=== PATIENT | female | born 1955 | race Caucasian/White ===

== ENCOUNTER → 2017-12-20 | Outpatient (CLI) | payer BC ==
[2017-12-20 16:31] LABS: DHEA Sulfate 71.7 ug/dL (26.0-430.0)
[2017-12-20 16:35] LABS: Insulin Level 15.8 mIU/mL (3.0-25.0)
[2017-12-20 21:57] LABS: Hemoglobin A1C 5.8 % (4.0-6.0)
== END | disposition home or self-care (01) ==
LOC: LABWHC1 11:20
PROVIDERS: ATTEND Family Medicine
DX: M06.9 Rheumatoid arthritis, unspecified (principal); E03.9 Hypothyroidism, unspecified; E34.9 Endocrine disorder, unspecified; E11.9 Type 2 diabetes mellitus without complications
CPT/HCPCS: 36415; 82627; 82947; 83036; 83525; 84443; 84481; 86038; 86235

== ENCOUNTER → 2018-01-12 | Outpatient (CLI) | payer BC ==
[2018-01-12 13:14] LABS: Albumin 4.2 g/dL (3.5-5.0); Calcium 9.7 mg/dL (8.4-10.2); Potassium 4.5 mmol/L (3.5-5.1); Total Bilirubin 0.3 mg/dL (0.2-1.3); Total Protein 7.1 g/dL (6.3-8.2)
== END ==
LOC: LABWHC1 11:45
PROVIDERS: ATTEND Internal Medicine Endocrinology, Diabetes & Metabolism
DX: R73.03 Prediabetes (principal)
CPT/HCPCS: 36415; 80053; 83036

== ENCOUNTER → 2018-05-06 | Outpatient (CLI) | payer BC ==
[2018-05-06 12:35] LABS: Albumin 4.1 g/dL (3.5-5.0); Calcium 9.4 mg/dL (8.4-10.2); Potassium 4.2 mmol/L (3.5-5.1); Total Bilirubin 0.4 mg/dL (0.2-1.3); Total Protein 7.5 g/dL (6.3-8.2)
== END | disposition home or self-care (01) ==
LOC: LABWHC1 11:36
PROVIDERS: ATTEND Internal Medicine Clinical Cardiac Electrophysiology
DX: E78.5 Hyperlipidemia, unspecified (principal); R06.02 Shortness of breath; I49.3 Ventricular premature depolarization
CPT/HCPCS: 36415; 80053; 80061

== ENCOUNTER → 2018-06-21 | Outpatient (CLI) | payer BC ==
[2018-06-21 12:39] LABS: HGB 14.6 gm/dL (11.4-16.0); MCH 29.5 pg (25.0-35.0); MCHC 32.4 g/dL (31.0-37.0); MCV 91.1 fL (80.0-100.0); Mean Platelet Volume 6.3; Platelet Count 309 k/uL (150-450); RBC 4.94 m/uL (3.80-5.40); RDW 13.3 % (11.5-15.5); WBC 5.8 k/uL (3.8-10.6)
[2018-06-21 14:35] LABS: Erythrocyte Sedimentation Rate 16 mm/hr (0-20)
[2018-06-21 16:17] LABS: Iron Saturation 20.35 (12.00-45.00)
[2018-06-21 16:25] LABS: DHEA Sulfate 57.3 ug/dL (26.0-430.0)
[2018-06-21 16:30] LABS: Progesterone 1.2 ng/mL
[2018-06-21 16:31] LABS: Insulin Level 16.4 mIU/mL (3.0-25.0); Vitamin D 25 Hydroxy 44.3 ng/mL (30.0-100.0)
[2018-06-21 16:35] LABS: Thyroid Peroxidase Antibodies 53.7 U/mL (0.0-60.0)
[2018-06-21 17:55] LABS: Hemoglobin A1C 5.8 % (4.0-6.0)
[2018-06-22 11:40] LABS: Potassium 4.5; Sodium 139
[2018-06-22 11:41] LABS: Chloride 106; Glucose 92
[2018-06-22 11:42] LABS: Anion Gap 8.6; Carbon Dioxide 24.4
[2018-06-22 11:44] LABS: Calcium 9.7
[2018-06-22 11:49] LABS: GGT 17; Total Bilirubin 0.5
[2018-06-22 11:50] LABS: ALT 28; AST 27
[2018-06-22 11:51] LABS: Alkaline Phosphatase 55; C Reactive Protein <0.4
[2018-06-22 11:52] LABS: Cholesterol 199; Triglycerides 210
== END | disposition home or self-care (01) ==
LOC: LABWHC1 11:25
PROVIDERS: ATTEND Family Medicine
DX: E78.49 Other hyperlipidemia (principal); E03.9 Hypothyroidism, unspecified; D64.9 Anemia, unspecified; M06.9 Rheumatoid arthritis, unspecified; K76.9 Liver disease, unspecified; N28.9 Disorder of kidney and ureter, unspecified; I10 Essential (primary) hypertension; E11.9 Type 2 diabetes mellitus without complications; E34.9 Endocrine disorder, unspecified; E72.10 Disorders of sulfur-bearing amino-acid metabolism, unspecified; E55.9 Vitamin D deficiency, unspecified; E53.9 Vitamin B deficiency, unspecified
CPT/HCPCS: 36415; 80053; 80061; 82306; 82533; 82607; 82627; 82670; 82679; 82728; 82977; 83001; 83002; 83036; 83090; 83525; 83540; 83550; 84144; 84402; 84403; 84439; 84443; 84481; 85027; 85652; 86140; 86376; 86800

== ENCOUNTER 2019-06-17 19:30 | Emergency (ER) | payer BC ==
[2019-06-17 19:50] VITALS: RESP 18
--- NOTE | 2019-06-17 21:02 | XR ---
EXAMINATION TYPE: XR chest 2V DATE OF EXAM: 06/17/2019 COMPARISON: 08/23/2015 HISTORY: Cough TECHNIQUE: Frontal and lateral views of the chest are obtained. FINDINGS: Heart and mediastinum are normal. Lungs are clear. Diaphragm is normal. Bony thorax appear s normal. IMPRESSION: Normal chest. No change.
[2019-06-17] MEDS ORDERED: methylPREDNISolone SOD SUCCI 125 MG/2 ML VIAL IM ONE (21:19)
--- NOTE | 2019-06-17 21:20 | ED ---
URI HPI - General Chief Complaint: Upper Respiratory Infection Stated Complaint: Cough Time Seen by Provider: 06/17/19 20:11 Source: patient Mode of arrival: ambulatory Limitations: no limitations - History of Present Illness Initial Comments: 63-year-old female presented [facility] department for persistent cough. Patient states she has had a cough now for the past 2-3 weeks. Patient states that it has caused now burning in her throat. Patient denies any chest pain. She denies shortness of breath hemoptysis leg swelling. Patient states it initially started as congestion. Patient states that she is concerned this is developing into pneumonia. Patient denies fevers or rigors or chills. Remaining review of system negative. Upon arrival patient appears well no signs of acute distress. Vital signs stable - Related Data Home Medications Medication Instructions Recorded Confirmed Omeprazole [PriLOSEC] 10 mg PO DAILY 09/29/14 06/17/19 hydrOXYzine PAMOATE [Vistaril] 50 mg PO HS 09/29/14 06/17/19 Bioidentical Hormone Cream(Otc) 1 applic TOPICAL HS 06/17/19 06/17/19 Budesonide [Pulmicort] 0.5 mg INHALATION RT-BID PRN 06/17/19 06/17/19 Cimetidine [Tagamet] 200 mg PO DAILY 06/17/19 06/17/19 Cromolyn Sodium 20 mg INHALATION RT-QID PRN 06/17/19 06/17/19 Levothyroxine Sodium [Synthroid] 25 mcg PO DAILY 06/17/19 06/17/19 Thyroid,Pork [Asphalt Still Operator Thyroid] 60 mg PO DAILY 06/17/19 06/17/19 Previous Rx's Medication Instructions Recorded predniSONE 20 mg PO DAILY 5 Days #5 tab 06/17/19 Allergies Allergy/AdvReac Type Severity Reaction Status Date / Time ciprofloxacin [From Cipro] Allergy Unknown Verified 06/17/19 20:21 ciprofloxacin HCl Allergy Unknown Verified 06/17/19 20:21 [From Cipro] rabeprazole sodium Allergy Unknown Verified 06/17/19 20:21 [From Aciphex] Sulfa (Sulfonamide Allergy Unknown Verified 06/17/19 20:21 Antibiotics) Review of Systems ROS Statement: Those systems with pertinent positive or pertinent negative responses have been documented in the HPI. ROS Other: All systems not noted in ROS Statement are negative. Past Medical History Past Medical History: GERD/Reflux Additional Past Medical History / Comment(s): instititial cystitis, History of Any Multi-Drug Resistant Organisms: None Reported Past Surgical History: Breast Surgery, Hysterectomy Additional Past Surgical History / Comment(s): BREAST REDUCTION/ TUMMY TUCK, face lift, Past Psychological History: Panic Disorder Smoking Status: Former smoker Past Alcohol Use History: None Reported Past Drug Use History: None Reported General Exam - General Exam Comments Initial Comments: General: The patient is awake and alert, in no distress, and does not appear acutely ill. Eye: +3 mm pupils are equal, round and reactive to light, extra-ocular movements are intact. No nystagmus. There is normal conjunctiva bilaterally. No signs of icterus. No photophobia Ears, nose, mouth and throat: There are moist mucous membranes and no oral lesions. Oropharynx was not erythematous there is no tonsillar enlargement exudates or lesions. Uvula midline. Tympanic membranes are not erythematous or is no effusions bulging or retraction. No tenderness to palpation of the mastoid. No anterior cervical lymphadenopathy. Rhinorrhea, clear and bilateral nares. No tripoding, no drooling. Neck: The neck is supple, there is no tenderness or JVD. No nuchal rigidity Cardiovascular: There is a regular rate and rhythm. No murmur, rub or gallop is appreciated. Respiratory: Lungs are clear to auscultation, respirations are non-labored, breath sounds are equal. No wheezes, stridor, rales, or rhonchi. No retractions or abdominal breathing. Gastrointestinal: Soft, non-distended, non-tender abdomen without masses or organomegaly noted. There is no rebound or guarding present. Bowel sounds are unremarkable. Musculoskeletal: Normal ROM, no tenderness. Strength 5/5. Sensation intact. Radial pulses equal bilaterally 2+. Neurological: A&O x 3. CN II-XII intact grossly, There are no obvious motor or sensory deficits. Coordination appears grossly intact. Speech appears normal, no muffling. Skin: Skin is warm and dry and no rashes or lesions are noted. No extremity edema Psychiatric: Cooperative Limitations: no limitations Course Vital Signs 06/17/19 06/17/19 06/17/19 19:48 20:18 21:36 Temperature 98.7 F 98.4 F Pulse Rate 92 90 Respiratory 18 18 18 Rate Blood Pressure 138/71 136/82 O2 Sat by Pulse 97 97 Oximetry Medical Decision Making - Medical Decision Making Well-appearing 63-year-old female presenting for upper respiratory symptoms and cough. Persistent 3 weeks. Chest x-ray negative for focal consolidation. Lungs clear. Patient has at home breathing treatments. Patient provided IM steroids and given a prescription for prednisone outpatient. No history of fevers. At this time feels is most likely viral bronchitis. Return parameters were discussed case discussed with a provider and patient was discharged appearing well Disposition Clinical Impression: Bronchitis Disposition: HOME SELF-CARE Condition: Good Instructions (If sedation given, give patient instructions): Upper Respiratory Infection (ED) Additional Instructions: Please use medication as discussed. Please follow-up with family doctor in the next 2 days. Please return to emergency room if the symptoms increase or worsen or for any other concerns. Prescriptions: predniSONE 20 mg PO DAILY 5 Days #5 tab Is patient prescribed a controlled substance at d/c from ED?: No Referrals: Chase Nair MD [Primary Care Provider] - 1-2 days Time of Disposition: 21:19
[2019-06-17 21:39] VITALS: BP 136/82; PULSE 90; TEMP 98.4
== END 2019-06-17 21:39 | disposition home or self-care (01) ==
LOC: EC 19:30
DX: J40 Bronchitis, not specified as acute or chronic (principal); K21.9 Gastro-esophageal reflux disease without esophagitis; Z79.890 Hormone replacement therapy; Z79.899 Other long term (current) drug therapy; Z88.1 Allergy status to other antibiotic agents; Z88.2 Allergy status to sulfonamides; Z88.8 Allergy status to other drugs, medicaments and biological substances; Z87.891 Personal history of nicotine dependence
CPT/HCPCS: 71046; 99283; 96372; J2930

== ENCOUNTER → 2019-07-03 | Outpatient (CLI) | payer BC ==
--- NOTE | 2019-07-03 14:55 | XR ---
EXAMINATION TYPE: XR cervical spine limited DATE OF EXAM: 07/03/2019 COMPARISON: 04/18/2011 HISTORY: 63-year-old female with neck pain along the right side TECHNIQUE: 3 views FINDINGS: Progressive moderate degenerative disc disease with endplate spondylosis and disc space narrowing at C5-C6. Cervicothoracic junction is obscured by the patient's shoulders and not assessed. Scattered fa cet and uncovertebral joint arthropathy throughout. Facet arthropathy appears asymmetrically greater towards the right on the AP view. Normal odontoid view. No predental space widening or prevertebral s oft tissue swelling. Stable heterotopic ossifications along the posterior midline opposite the C4-C5 level. IMPRESSION: 1. Progressive moderate spondylotic change particularly at C5-C6. 2. Note that the cervicothoracic junction is obscured by the patient's shoulders and not assessed. Re maining cervical alignment is maintained. 3. Stable heterotopic ossifications along the posterior midline at the C4-C5 level.
== END | disposition home or self-care (01) ==
LOC: RADXRMAIN 11:19
PROVIDERS: ATTEND Family Medicine
DX: M47.812 Spondylosis without myelopathy or radiculopathy, cervical region (principal)
CPT/HCPCS: 72040

== ENCOUNTER → 2019-10-17 | Outpatient (CLI) | payer BC ==
[2019-10-17 16:43] LABS: African American GFR (CKD) 68.5 (60.0-200.0); Albumin 4.5 g/dL (3.80-4.90); Albumin/Globulin Ratio 1.73 (1.60-3.17); Calcium 9.6 mg/dL (8.7-10.3); Chol/HDL Ratio 4.17; Globulin 2.6 g/dL (1.6-3.3); LDL Cholesterol,Calculated 125.4 mg/dL (0.0-131.0); Non-African American GFR(CKD) 59.1 (60.0-200.0); Potassium 4.4 mmol/L (3.5-5.5); Total Bilirubin 0.6 mg/dL (0.2-1.2); Total Protein 7.1 g/dL (6.2-8.2); VLDL Calculation 20.6 mg/dL (5.00-40.00)
== END ==
LOC: LABWHC1 11:34
PROVIDERS: ATTEND Internal Medicine Endocrinology, Diabetes & Metabolism
DX: R73.03 Prediabetes (principal)
CPT/HCPCS: 36415; 80053; 80061; 83036; 84443

== ENCOUNTER → 2019-10-17 | Outpatient (CLI) | payer BC, MEDICARE ==
--- NOTE | 2019-10-17 13:46 | US ---
EXAMINATION TYPE: US abdomen complete DATE OF EXAM: 10/17/2019 COMPARISON: 07/17/2016 CLINICAL HISTORY: 64-year-old female R10.9 ABD PAIN. TECHNIQUE: Multiple sonographic images of the abdomen are obtained. FINDINGS: EXAM MEASUREMENTS: Liver Length: 14.1 cm Gallbladder Wall: 0.3 cm CBD: 0.3 cm Spleen: 10.5 cm Right Kidney: 10.9 x 3.8 x 4.4 cm Left Kidney: 10.8 x 4.9 x 4.5 cm Manager Lsw notes: Extensive overlying bowel gas. Pancreas: mostly obscured by bowel gas, portions visualized wnl Liver: Echogenic and attenuating appearance. This secondarily limits assessment for focal lesion. Als o, the left lobe is partially obscure by bowel gas Gallbladder: wnl Evidence for sonographic Clinton's sign: no CBD: wnl Spleen: wnl Kidneys: No hydronephrosis on either side. Upper IVC: wnl Abd Aorta: Upper abdominal aorta ectatic at 2.7 x 2.6 cm. IMPRESSION: 1. Underlying hepatic steatosis. Bowel gas obscures portions of the left liver lobe. 2. No cholelithiasis, acute cholecystitis, or biliary ductal dilatation.
== END | disposition home or self-care (01) ==
LOC: RADUSWWP 10:48
PROVIDERS: ATTEND Internal Medicine Gastroenterology
DX: K76.0 Fatty (change of) liver, not elsewhere classified (principal); R14.3 Flatulence
CPT/HCPCS: 76700

== ENCOUNTER 2020-01-02 17:39 | Emergency (ER) | payer BC ==
[2020-01-02] MEDS ORDERED: SODIUM CHLORIDE 0.9% 1,000 ML IV STA (18:09)
[2020-01-02] MEDS ORDERED: KETOROLAC 30 MG/ML 1 ML VIAL IVP STA (18:09)
--- NOTE | 2020-01-02 18:17 | ED ---
Abdominal Pain HPI - General Chief Complaint: Abdominal Pain Stated Complaint: Abd Pain Time Seen by Provider: 01/02/20 17:50 Source: patient Mode of arrival: ambulatory Limitations: no limitations - History of Present Illness Initial Comments: Patient is a 64-year-old female here for left-sided abdominal pain has been increasing over 2 days. Patient states she had a tele-health visit with her PCP today who recommended she go into the ER for evaluation. Patient states the pain started when she woke up 2 days ago, mostly on her left side, umbilical area. There is no alleviating factors. Patient states eating seems to make the pain a little bit worse. She admits to history of , hysterectomy, tummy tuck. She admits to normal colonoscopy a few years ago. She denies history of fever, chills, vomiting, chest pain, shortness of breath. She does admit to mild nausea has been intermittent. She rates her pain a 5/10 at this time. She denies taking any Tylenol or Motrin. She has no further complaints at this time. Upon arrival to the ER, her vital signs are stable. - Related Data Home Medications Medication Instructions Recorded Confirmed Omeprazole [PriLOSEC] 10 mg PO DAILY 09/29/14 06/17/19 hydrOXYzine PAMOATE [Vistaril] 50 mg PO HS 09/29/14 06/17/19 Bioidentical Hormone Cream(Otc) 1 applic TOPICAL HS 06/17/19 06/17/19 Budesonide [Pulmicort] 0.5 mg INHALATION RT-BID PRN 06/17/19 06/17/19 Cimetidine [Tagamet] 200 mg PO DAILY 06/17/19 06/17/19 Cromolyn Sodium 20 mg INHALATION RT-QID PRN 06/17/19 06/17/19 Levothyroxine Sodium [Synthroid] 25 mcg PO DAILY 06/17/19 06/17/19 Thyroid,Pork [Piano Instructor Thyroid] 60 mg PO DAILY 06/17/19 06/17/19 Previous Rx's Medication Instructions Recorded predniSONE [Deltasone] 20 mg PO DAILY 5 Days #5 tab 06/17/19 Cephalexin [Keflex] 500 mg PO BID 3 Days #6 cap 01/02/20 Allergies Allergy/AdvReac Type Severity Reaction Status Date / Time ciprofloxacin [From Cipro] Allergy Unknown Verified 01/02/20 17:44 ciprofloxacin HCl Allergy Unknown Verified 01/02/20 17:44 [From Cipro] rabeprazole sodium Allergy Unknown Verified 01/02/20 17:44 [From Aciphex] Sulfa (Sulfonamide Allergy Unknown Verified 01/02/20 17:44 Antibiotics) Review of Systems ROS Statement: Those systems with pertinent positive or pertinent negative responses have been documented in the HPI. ROS Other: All systems not noted in ROS Statement are negative. Past Medical History Past Medical History: GERD/Reflux Additional Past Medical History / Comment(s): instititial cystitis, History of Any Multi-Drug Resistant Organisms: None Reported Past Surgical History: Breast Surgery, Hysterectomy Additional Past Surgical History / Comment(s): BREAST REDUCTION/ TUMMY TUCK, face lift, Past Psychological History: Panic Disorder Smoking Status: Former smoker Past Alcohol Use History: None Reported Past Drug Use History: None Reported General Exam - General Exam Comments Initial Comments: GENERAL: Well-appearing, well-nourished and in no acute distress. HEAD: Atraumatic, normocephalic. EYES: Pupils equal round and reactive to light, extraocular movements intact, sclera anicteric, conjunctiva are normal. ENT: TMs normal, nares patent, oropharynx clear without exudates. Moist mucous membranes. NECK: Normal range of motion, supple without lymphadenopathy or JVD. LUNGS: Breath sounds clear to auscultation bilaterally and equal. No wheezes rales or rhonchi. HEART: Regular rate and rhythm without murmurs, rubs or gallops. ABDOMEN: Tenderness to palpation of the left side of the abdomen, lower >upper quadrant as well as suprapubic and umbilical region. Soft, normoactive bowel sounds. No guarding, no rebound. No masses appreciated. : Deferred EXTREMITIES: Normal range of motion, no pitting or edema. No clubbing or cyanosis. NEUROLOGICAL: Normal speech, normal gait. PSYCH: Normal mood, normal affect. SKIN: Warm, Dry, normal turgor, no rashes or lesions noted. Limitations: no limitations Course Vital Signs 01/02/20 01/02/20 17:42 20:34 Temperature 97.6 F 98.1 F Pulse Rate 86 81 Respiratory 18 16 Rate Blood Pressure 148/68 140/64 O2 Sat by Pulse 98 96 Oximetry Medical Decision Making - Medical Decision Making Patient is a 64-year-old female here for left sided abdominal pain is increasing over 2 days. Vital signs are stable. Lab work is unremarkable. Computed tomography scan shows no acute abnormalities, urine does show mild bacteria. I discussed with patient these findings. Patient did mention that 2 days ago prior to her symptoms she did help her move stuff into the attic and was doing a lot of overhead lifting. She states this might be muscle in nature. I recommended taking ibuprofen. Patient will be started on Keflex for a mild UTI. She is in agreement with this plan of care. She is stable for discharge. Return parameters were discussed with the patient she verbalized understanding. She will follow up with PCP. Case discussed with Dr. Johnson. - Lab Data Result diagrams: 01/02/20 18:20 01/02/20 18:20 Lab Results 01/02/20 01/02/20 01/02/20 Range/Units 18:20 18:20 18:20 WBC 8.4 (3.8-10.6) k/uL RBC 4.73 (3.80-5.40) m/uL Hgb 13.1 (11.4-16.0) gm/dL Hct 40.9 (34.0-46.0) % MCV 86.3 (80.0-100.0) fL MCH 27.6 (25.0-35.0) pg MCHC 32.0 (31.0-37.0) g/dL RDW 14.5 (11.5-15.5) % Plt Count 290 (150-450) k/uL Neutrophils % 67 % Lymphocytes % 20 % Monocytes % 6 % Eosinophils % 2 % Basophils % 1 % Neutrophils # 5.7 (1.3-7.7) k/uL Lymphocytes # 1.7 (1.0-4.8) k/uL Monocytes # 0.5 (0-1.0) k/uL Eosinophils # 0.2 (0-0.7) k/uL Basophils # 0.1 (0-0.2) k/uL PT 10.0 (9.0-12.0) sec INR 1.0 (<1.2) APTT 24.7 (22.0-30.0) sec Sodium (137-145) mmol/L Potassium (3.5-5.1) mmol/L Chloride (98-107) mmol/L Carbon Dioxide (22-30) mmol/L Anion Gap mmol/L BUN (7-17) mg/dL Creatinine (0.52-1.04) mg/dL Est GFR (CKD-EPI)AfAm (>60 ml/min/1.73 sqM) Est GFR (CKD-EPI)NonAf (>60 ml/min/1.73 sqM) Glucose (74-99) mg/dL Calcium (8.4-10.2) mg/dL Total Bilirubin (0.2-1.3) mg/dL AST (14-36) U/L ALT (4-34) U/L Alkaline Phosphatase (38-126) U/L Total Protein (6.3-8.2) g/dL Albumin (3.5-5.0) g/dL Amylase (30-110) U/L Lipase (23-300) U/L Urine Color Light Yellow Urine Appearance Turbid H (Clear) Urine pH 5.5 (5.0-8.0) Ur Specific [place] 1.008 (1.001-1.035) Urine Protein Negative (Negative) Urine Glucose (UA) Negative (Negative) Urine Ketones Negative (Negative) Urine Blood Trace H (Negative) Urine Nitrite Negative (Negative) Urine Bilirubin Negative (Negative) Urine Urobilinogen <2.0 (<2.0) mg/dL Ur Leukocyte Esterase Negative (Negative) Urine RBC 2 (0-5) /hpf Urine WBC 2 (0-5) /hpf Ur Squamous Epith Cells 3 (0-4) /hpf Amorphous Sediment Few H (None) /hpf Urine Bacteria Occasional H (None) /hpf Hyaline Casts 3 H (0-2) /lpf Urine Mucus Rare H (None) /hpf 05//20 Range/Units 18:20 WBC (3.8-10.6) k/uL RBC (3.80-5.40) m/uL Hgb (11.4-16.0) gm/dL Hct (34.0-46.0) % MCV (80.0-100.0) fL MCH (25.0-35.0) pg MCHC (31.0-37.0) g/dL RDW (11.5-15.5) % Plt Count (150-450) k/uL Neutrophils % % Lymphocytes % % Monocytes % % Eosinophils % % Basophils % % Neutrophils # (1.3-7.7) k/uL Lymphocytes # (1.0-4.8) k/uL Monocytes # (0-1.0) k/uL Eosinophils # (0-0.7) k/uL Basophils # (0-0.2) k/uL PT (9.0-12.0) sec INR (<1.2) APTT (22.0-30.0) sec Sodium 140 (137-145) mmol/L Potassium 3.9 (3.5-5.1) mmol/L Chloride 104 (98-107) mmol/L Carbon Dioxide 24 (22-30) mmol/L Anion Gap 12 mmol/L BUN 15 (7-17) mg/dL Creatinine 0.79 (0.52-1.04) mg/dL Est GFR (CKD-EPI)AfAm >90 (>60 ml/min/1.73 sqM) Est GFR (CKD-EPI)NonAf 80 (>60 ml/min/1.73 sqM) Glucose 87 (74-99) mg/dL Calcium 9.5 (8.4-10.2) mg/dL Total Bilirubin 0.3 (0.2-1.3) mg/dL AST 25 (14-36) U/L ALT 19 (4-34) U/L Alkaline Phosphatase 65 (38-126) U/L Total Protein 8.2 (6.3-8.2) g/dL Albumin 4.4 (3.5-5.0) g/dL Amylase 69 (30-110) U/L Lipase 89 (23-300) U/L Urine Color Urine Appearance (Clear) Urine pH (5.0-8.0) Ur Specific [place] (1.001-1.035) Urine Protein (Negative) Urine Glucose (UA) (Negative) Urine Ketones (Negative) Urine Blood (Negative) Urine Nitrite (Negative) Urine Bilirubin (Negative) Urine Urobilinogen (<2.0) mg/dL Ur Leukocyte Esterase (Negative) Urine RBC (0-5) /hpf Urine WBC (0-5) /hpf Ur Squamous Epith Cells (0-4) /hpf Amorphous Sediment (None) /hpf Urine Bacteria (None) /hpf Hyaline Casts (0-2) /lpf Urine Mucus (None) /hpf Disposition Clinical Impression: Abdominal pain, Abdominal muscle strain, UTI (urinary tract infection) Disposition: HOME SELF-CARE Condition: Stable Instructions (If sedation given, give patient instructions): Abdominal Pain (ED) Additional Instructions: Please return to the Emergency Department if symptoms worsen or any other concerns. May take ibuprofen for possible abdominal muscle strain. Follow-up with PCP. Take antibiotic as prescribed for a mild UTI. Prescriptions: Cephalexin [Keflex] 500 mg PO BID 3 Days #6 cap Is patient prescribed a controlled substance at d/c from ED?: No Referrals: Efrain Hayward DO [Primary Care Provider] - 1-2 days
[2020-01-02 19:08] LABS: Basophils # (A) 0.1 k/uL (0-0.2); Basophils % (A) 1 %; Eosinophils # (A) 0.2 k/uL (0-0.7); Eosinophils % (A) 2 %; HCT 40.9 % (34.0-46.0); HGB 13.1 gm/dL (11.4-16.0); Lymphocytes # (A) 1.7 k/uL (1.0-4.8); Lymphocytes % (A) 20 %; MCH 27.6 pg (25.0-35.0); MCV 86.3 fL (80.0-100.0); Monocytes # (A) 0.5 k/uL (0-1.0); Monocytes % (A) 6 %; Neutrophils # (A) 5.7 k/uL (1.3-7.7); Neutrophils % (A) 67 %; Platelet Count 290 k/uL (150-450); RBC 4.73 m/uL (3.80-5.40); RDW 14.5 % (11.5-15.5); WBC 8.4 k/uL (3.8-10.6)
[2020-01-02 19:14] LABS: ALT 19 U/L (4-34); AST 25 U/L (14-36); African American GFR (CKD) >90 (>60 ml/min/1.73 sqM); Albumin 4.4 g/dL (3.5-5.0); Alkaline Phosphatase 65 U/L (38-126); Amylase 69 U/L (30-110); Anion Gap 12 mmol/L; Blood Urea Nitrogen 15 mg/dL (7-17); Calcium 9.5 mg/dL (8.4-10.2); Carbon Dioxide 24 mmol/L (22-30); Chloride 104 mmol/L (98-107); Glucose 87 mg/dL (74-99); Non-African American GFR(CKD) 80 (>60 ml/min/1.73 sqM); Potassium 3.9 mmol/L (3.5-5.1); Sodium 140 mmol/L (137-145); Total Bilirubin 0.3 mg/dL (0.2-1.3); Total Protein 8.2 g/dL (6.3-8.2)
[2020-01-02 19:17] LABS: Amorphous Sediment,Urine Few /hpf; Appearance,Urine Turbid (Clear); Bacteria,Urine Occasional /hpf; Bilirubin,Urine Negative (Negative); Blood,Urine Trace (Negative); Color,Urine Light Yellow; Glucose,Urine (UA) Negative (Negative); Hyaline Casts,Urine 3 /lpf (0-2); Ketones,Urine Negative (Negative); Leukocyte Esterase,Urine Negative (Negative); Mucus,Urine Rare /hpf; Nitrite,Urine Negative (Negative); PH, Urine 5.5 (5.0-8.0); Protein,Urine Negative (Negative); RBC,Urine 2 /hpf (0-5); Specific Gravity,Urine 1.008 (1.001-1.035); Squamous Epithelial Cell,Urine 3 /hpf (0-4); Urobilinogen,Urine <2.0 mg/dL (<2.0); WBC,Urine 2 /hpf (0-5)
[2020-01-02 19:19] LABS: Partial Thromboplastin Time 24.7 sec (22.0-30.0)
--- NOTE | 2020-01-02 19:44 | CT ---
EXAMINATION TYPE: CT abdomen pelvis wo con DATE OF EXAM: 01/02/2020 HISTORY: Mid to left sided abdominal pain. CT DLP: 536.7 mGycm. Automated Exposure Control for Dose Reduction was Utilized. TECHNIQUE: CT scan of the abdomen and pelvis is performed without oral or IV contrast. COMPARISON: CT abdomen and pelvis March 19, 2009 FINDINGS: Within the limitations of a non-contrast study, the following observations are made. LUNG BASES: No significant abnormality is appreciated. LIVER/GB: Liver is diffusely low dense consistent with fatty infiltration. PANCREAS: No significant abnormality is seen. SPLEEN: No significant abnormality is seen. ADRENALS: No significant abnormality is seen. KIDNEYS: No renal stones or hydronephrosis is seen bilaterally. BOWEL: Suboptimal evaluation without enteric contrast. No suspicious small or large bowel dilatation. Low-lying cecum into right pelvis. GENITAL ORGANS: Uterus surgically absent or markedly atrophic. Some pelvic phleboliths axial image 69 . LYMPH NODES: No greater than 1cm abdominal or pelvic lymph nodes are appreciated. OSSEOUS STRUCTURES: Moderate axial joint space loss in both hips. Mild to moderate multilevel spurrin g in the thoracolumbar spine. OTHER: No significant additional abnormality is seen. IMPRESSION: No new or acute finding identified on this study.
[2020-01-02] MEDS ORDERED: cefTRIAXone IN SWFI 1,000 MG/10 ML SYRINGE IVP STA (20:17)
[2020-01-02 20:39] VITALS: BP 140/64; PULSE 81; RESP 16; TEMP 98.1
== END 2020-01-02 20:43 | disposition home or self-care (01) ==
LOC: EC 17:39
DX: N39.0 Urinary tract infection, site not specified (principal); S39.011A Strain of muscle, fascia and tendon of abdomen, initial encounter; K21.9 Gastro-esophageal reflux disease without esophagitis; Z79.899 Other long term (current) drug therapy; Z79.51 Long term (current) use of inhaled steroids; Z79.890 Hormone replacement therapy; Z88.1 Allergy status to other antibiotic agents; Z88.2 Allergy status to sulfonamides; Z88.8 Allergy status to other drugs, medicaments and biological substances; X58.XXXA Exposure to other specified factors, initial encounter
CPT/HCPCS: 36415; 80053; 82150; 83690; 85025; 85610; 85730; 81001; 74176; 99284; 96374; 96361; J0696

== ENCOUNTER 2020-08-23 10:10 | Emergency (ER) | payer BC ==
[2020-08-23 10:24] VITALS: BP 187/93; RESP 18; TEMP 98.7
[2020-08-23] MEDS ORDERED: diazePAM 5 MG TAB PO STA (10:27)
--- NOTE | 2020-08-23 10:36 | ED ---
General Adult HPI - General Chief complaint: Recheck/Abnormal Lab/Rx Stated complaint: HR IS HIGH,SHAKY Time Seen by Provider: 08/23/20 10:26 Source: patient, RN notes reviewed, old records reviewed Mode of arrival: ambulatory Limitations: no limitations - History of Present Illness Initial comments: Patient is a pleasant 65-year-old female who presents emergency room today with acute anxiety stress and shakiness. She reports that her is currently in the intensive care unit and suffered cardiac arrest. Patient reports that her is in critical condition states that he may be transferred to another hospital. Patient states that she has had take Valium when she's been acute stress reactions like this before. She reports that the lowest dose of 2mg seems to help with her symptoms. - Related Data Home Medications Medication Instructions Recorded Confirmed Omeprazole [PriLOSEC] 10 mg PO DAILY 09/29/14 06/17/19 hydrOXYzine pamoate [Vistaril] 50 mg PO HS 09/29/14 06/17/19 Bioidentical Hormone Cream(Otc) 1 applic TOPICAL HS 06/17/19 06/17/19 Budesonide [Pulmicort] 0.5 mg INHALATION RT-BID PRN 06/17/19 06/17/19 Cimetidine [Tagamet] 200 mg PO DAILY 06/17/19 06/17/19 Cromolyn Sodium 20 mg INHALATION RT-QID PRN 06/17/19 06/17/19 Levothyroxine Sodium [Synthroid] 25 mcg PO DAILY 06/17/19 06/17/19 Thyroid,Pork [Pediatric Physician Assistant Thyroid] 60 mg PO DAILY 06/17/19 06/17/19 Previous Rx's Medication Instructions Recorded predniSONE [Deltasone] 20 mg PO DAILY 5 Days #5 tab 06/17/19 Cephalexin [Keflex] 500 mg PO BID 3 Days #6 cap 01/02/20 diazePAM [Valium] 2 mg PO QID 3 Days #12 tab 08/23/20 Allergies Allergy/AdvReac Type Severity Reaction Status Date / Time ciprofloxacin [From Cipro] Allergy Unknown Verified 08/23/20 10:24 ciprofloxacin HCl Allergy Unknown Verified 08/23/20 10:24 [From Cipro] rabeprazole sodium Allergy Unknown Verified 08/23/20 10:24 [From Aciphex] Sulfa (Sulfonamide Allergy Unknown Verified 08/23/20 10:24 Antibiotics) Review of Systems ROS Statement: Those systems with pertinent positive or pertinent negative responses have been documented in the HPI. ROS Other: All systems not noted in ROS Statement are negative. Past Medical History Past Medical History: Asthma, GERD/Reflux Additional Past Medical History / Comment(s): instititial cystitis, History of Any Multi-Drug Resistant Organisms: None Reported Past Surgical History: Breast Surgery, Hysterectomy Additional Past Surgical History / Comment(s): BREAST REDUCTION/ TUMMY TUCK, face lift, Past Psychological History: Panic Disorder Smoking Status: Never smoker Past Alcohol Use History: None Reported Past Drug Use History: None Reported General Exam - General Exam Comments Initial Comments: 65-year-old female. Anxious. Resting in bed. She is with her son at bedside. Limitations: no limitations General appearance: alert, in no apparent distress Head exam: Present: atraumatic Eye exam: Present: normal appearance, PERRL, EOMI. Absent: scleral icterus, conjunctival injection, periorbital swelling ENT exam: Present: normal exam, mucous membranes moist Neck exam: Present: normal inspection. Absent: tenderness, meningismus, lymphadenopathy Respiratory exam: Present: normal lung sounds bilaterally. Absent: respiratory distress, wheezes, rales, rhonchi, stridor Cardiovascular Exam: Present: regular rate, normal rhythm, normal heart sounds. Absent: systolic murmur, diastolic murmur, rubs, gallop, clicks GI/Abdominal exam: Present: soft, normal bowel sounds. Absent: distended, tenderness, guarding, rebound, rigid Extremities exam: Present: normal inspection, full ROM, normal capillary refill. Absent: tenderness, pedal edema, joint swelling, calf tenderness Back exam: Present: normal inspection Neurological exam: Present: alert, oriented X3, CN II-XII intact Psychiatric exam: Present: normal affect, normal mood Skin exam: Present: warm, dry, intact, normal color. Absent: rash Course Vital Signs 08/23/20 10:14 Temperature 98.7 F Pulse Rate 124 H Respiratory 18 Rate Blood Pressure 187/93 O2 Sat by Pulse 98 Oximetry Medical Decision Making - Medical Decision Making 65-year-old female presents emergency room today with acute stress reaction after her 's note critical condition and intensive care unit and suffering cardiac arrest. Patient at this time states that she would like Valium to help with her symptoms of shakiness and stress and anxiety. She denies any physical complaints at this time. Patient states that Valium seems to help with her symptoms past. Patient will be given 5 mg Valium tablet now and cut in half to use for later and I did send a prescription to her pharmacy. I discussed to follow-up with her primary care doctor and return if there is any concerning physical signs or symptoms. Patient is agreeable to treatment plan. Disposition Clinical Impression: Stress and adjustment reaction Disposition: HOME SELF-CARE Condition: Good Instructions (If sedation given, give patient instructions): Anxiolysis in Adults (ED) Additional Instructions: Please use medication as discussed. Please follow up with family doctor if symptoms have not improved over the next two days. Please return to the emergency room if your symptoms increase or worsen or for any other concerns. Prescriptions: diazePAM [Valium] 2 mg PO QID 3 Days #12 tab Is patient prescribed a controlled substance at d/c from ED?: Yes If prescribed controlled substance>3 days was MAPS reviewed?: Prescribed <3 Days If opioid is for acute pain is fill amount 7 days or less?: Yes If Rx opioid, was Start Talking consent form obtained?: Yes Referrals: Chase Nair MD [Primary Care Provider] - 1-2 days Time of Disposition: 10:34
[2020-08-23 10:39] VITALS: PULSE 102
== END 2020-08-23 10:50 | disposition home or self-care (01) ==
LOC: EC 10:10
DX: F43.29 Adjustment disorder with other symptoms (principal); J45.909 Unspecified asthma, uncomplicated; K21.9 Gastro-esophageal reflux disease without esophagitis; Z88.1 Allergy status to other antibiotic agents; Z88.2 Allergy status to sulfonamides; Z88.8 Allergy status to other drugs, medicaments and biological substances; Z90.710 Acquired absence of both cervix and uterus
CPT/HCPCS: 99285

== ENCOUNTER → 2021-12-09 | Outpatient (CLI) | payer MEDICARE ==
[2021-12-09 13:12] VITALS: BP 134/80; PULSE 80; RESP 12; TEMP 97.9
--- NOTE | 2021-12-09 14:19 | P.HPOB ---
History of Present Illness H&P Date: 12/09/21 Chief Complaint: The patient is here for her routine gynecologic exam. This is a 66-year-old with an LMP of 1988. The patient is here to establish with this office. She is status post BECKY/BSO for benign reasons. She later underwent a rectocele and enterocele repair in 2019. She states she has been having issues having bowel movements even before her rectocele and enterocele surgery. Her issues with bowel movements seem to have gotten worse after her enterocele and rectocele surgery. She sometimes has to push on the perineum to be able to move her bowels. Her last pelvic exam was about 4 years ago. She is otherwise without complaints. She has been using HRT compounded cream which she uses transdermally. This includes estradiol, estradiol ,progesterone and testosterone. She also uses a compounded estriol vaginal cream which she states helps with her interstitial cystitis. Review of Systems She states her weight has been stable over the past year. She denies respiratory problems. Cardiac: Occasional fluttering of the heart and she sees Dr. Lane for this. GI: She occasionally has to push on the perineum to have her bowel movements. See the HPI. Past Medical History Past Medical History: Asthma, GERD/Reflux, Thyroid Disorder Additional Past Medical History / Comment(s): instititial cystitis, hypothyroidism, Heard's esophagus. 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 History of Any Multi-Drug Resistant Organisms: None Reported Past Surgical History: Breast Surgery, Section, Hysterectomy, Tubal Ligation Additional Past Surgical History / Comment(s): BREAST REDUCTION/ TUMMY TUCK, face lift, breast biopsy, section 1, abdominoplasty, facelift surgery, BECKY/BSO in 1988. Rectocele and enterocele repair 2019. Past Psychological History: Panic Disorder Additional Psychological History / Comment(s): She denies depression symptoms. Smoking Status: Former smoker Past Alcohol Use History: None Reported Additional Past Alcohol Use History / Comment(s): Quit smoking in 1989. Past Drug Use History: None Reported Additional History: She has been a since 2019 and is not seeing anybody at this time. 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 - Past Family History Father Family Medical History: Cancer Additional Family Medical History / Comment(s): Pancreatic cancer. Brother(s) Family Medical History: Diabetes Mellitus Mother Family Medical History: Hypertension Medications and Allergies Home Medications Medication Instructions Recorded Confirmed Type Omeprazole [PriLOSEC] 10 mg PO DAILY 09/29/14 06/17/19 History hydrOXYzine pamoate [Vistaril] 50 mg PO HS 09/29/14 06/17/19 History Bioidentical Hormone Cream(Otc) 1 applic TOPICAL HS 06/17/19 06/17/19 History Budesonide [Pulmicort] 0.5 mg INHALATION RT-BID PRN 06/17/19 06/17/19 History Cromolyn Sodium 20 mg INHALATION RT-QID PRN 06/17/19 06/17/19 History Levothyroxine Sodium [Synthroid] 25 mcg PO DAILY 06/17/19 06/17/19 History Thyroid,Pork [Coil Shaper Thyroid] 60 mg PO DAILY 06/17/19 06/17/19 History Cholecalciferol (Vitamin D3) 250 mcg PO DAILY 12/09/21 12/09/21 History [Vitamin D3 (125 MCG = 5,000 IU)] Chromium Picolinate 200 mcg PO DAILY 12/09/21 12/09/21 History Famotidine [Pepcid] 40 mg PO BID 12/09/21 12/09/21 History Garlic 50 mg PO BID 12/09/21 12/09/21 History Lutein 20 mg PO DAILY 12/09/21 12/09/21 History Magnesium 240 mg PO BID 12/09/21 12/09/21 History Ubidecarenone [Co Q-10] 200 mg PO DAILY 12/09/21 12/09/21 History Vitamin A [Vitamin A (8,000 Units 3,000 mcg PO DAILY 12/09/21 12/09/21 History = 2,400 MCG)] metFORMIN HCL ER [Glucophage XR] 500 mg PO DAILY 12/09/21 12/09/21 History Allergies Allergy/AdvReac Type Severity Reaction Status Date / Time ciprofloxacin [From Cipro] Allergy Unknown Verified 12/09/21 13:06 ciprofloxacin HCl Allergy Unknown Verified 12/09/21 13:06 [From Cipro] rabeprazole sodium Allergy Unknown Verified 12/09/21 13:06 [From Aciphex] Sulfa (Sulfonamide Allergy Unknown Verified 12/09/21 13:06 Antibiotics) Exam Vital Signs Temp Pulse Resp BP Pulse Ox 12/09/21 13:06 97.9 F 80 12 134/80 99 Intake and Output 12/08/21 12/09/21 12/09/21 22:59 06:59 14:59 Other: Weight 71.668 kg Height 5 feet 6 inches, weight 158 pounds, BMI 25.5. This is a well-developed well-nourished white female who is alert and oriented times 3 in no acute distress. HEENT: Within normal limits. NECK: Supple without mass or thyromegaly. CHEST AND LUNGS: Clear to auscultation. HEART: Regular rate and rhythm. BREASTS: Are without mass or discharge. Breasts are consistent with bilateral breast reduction surgery. AXILLARY EXAM: Negative for adenopathy. BACK: Negative for CVA tenderness. ABDOMEN: Soft, nontender, without palpable masses. PELVIC EXAM: External genitalia appears normal with mild atrophy. Vagina appears normal mild atrophy. There is no evidence of prolapse. Bimanual examination is negative for mass or tenderness. RECTAL EXAM: Rectovaginal exam is negative for mass or tenderness and is negative for occult blood. There is good sphincter tone. EXTREMITIES: Nontender. IMPRESSION: 1. 66-year-old menopausal female status post BECKY/BSO as well as rectocele and enterocele surgery for benign reasons. 2. We'll gynecologic exam. 3. Some difficulty with bowel movements which has gotten worse following her rectocele and enterocele surgeries. There are no significant physical findings at this time. 4. On compounded HRT prescribed through another physician. PLAN: 1. Pap smears have been discontinued. 2. Self breast awareness was discussed with the patient. We have also discussed symptoms associated with inflammatory breast cancer. 3. Screening mammogram was recently done per the patient. She states she will get me a copy of this and this was done at [facility]. 4. Post prevention she states she had a fairly recent bone density test done at [facility]. She states she will have a copy of the report sent to me. 5. She has not received a Covid vaccination. She understands the CDC recommends vaccination. She will consider this. 6. We have had a long discussion regarding some difficulty with bowel movements . At this time I do not find any structural problems that could be directly causing this. She understands that the rectocele and enterocele repair may change some structures near the rectum and affect her bowel movements. This time pelvic physical therapy may be helpful. She states she has done this in the past with some improvement. She will look to start this up again to see if she can get more improvement. She has a physical therapist for this. 7. She was advised to return in one year for her annual well woman exam.
== END ==
LOC: WWCWWP 12:57
PROVIDERS: ATTEND Obstetrics & Gynecology
DX: Z01.419 Encounter for gynecological examination (general) (routine) without abnormal findings (principal); N81.6 Rectocele; K46.9 Unspecified abdominal hernia without obstruction or gangrene; J45.909 Unspecified asthma, uncomplicated; E03.9 Hypothyroidism, unspecified; F41.0 Panic disorder [episodic paroxysmal anxiety]; Z87.891 Personal history of nicotine dependence; Z90.710 Acquired absence of both cervix and uterus; K21.9 Gastro-esophageal reflux disease without esophagitis; Z79.890 Hormone replacement therapy; Z88.1 Allergy status to other antibiotic agents; Z88.2 Allergy status to sulfonamides; Z98.890 Other specified postprocedural states

== ENCOUNTER → 2023-01-12 | Outpatient (CLI) | payer MEDICARE ==
[2023-01-12 11:43] VITALS: BP 101/67; PULSE 80; RESP 18; TEMP 97.7
--- NOTE | 2023-01-12 12:22 | P.HPOB ---
History of Present Illness H&P Date: 01/12/23 Chief Complaint: The patient is here for her routine gynecologic exam. This is a 67-year-old with an LMP of 1988. She is status post BECKY/BSO for benign reasons. She later underwent a rectocele and enterocele surgery in 2019. She has been having issues with bowel movements and these issues have gotten greater after the rectocele repair. She has been undergoing physical therapy with use of a dilator which has been helpful. Review of Systems The patient has lost 3 pounds over the last year. She denies respiratory, cardiac, or G.I. problems. Past Medical History Past Medical History: Asthma, GERD/Reflux, Thyroid Disorder Additional Past Medical History / Comment(s): instititial cystitis, hypothyroidism, Heard's esophagus. 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 History of Any Multi-Drug Resistant Organisms: None Reported Past Surgical History: Breast Surgery, Section, Hysterectomy, Tubal Ligation Additional Past Surgical History / Comment(s): BREAST REDUCTION/ TUMMY TUCK, face lift, breast biopsy, section 1, abdominoplasty, facelift surgery, BECKY/BSO in 1988. Rectocele and enterocele repair 2019. Past Psychological History: Panic Disorder Additional Psychological History / Comment(s): She denies depression symptoms. Smoking Status: Former smoker Past Alcohol Use History: None Reported Additional Past Alcohol Use History / Comment(s): Quit smoking in 1989. Past Drug Use History: None Reported Additional History: She has been a since 2019. She is currently not seeing anybody at this time and has not been sexually active during the past year. 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 - Past Family History Father Family Medical History: Cancer Additional Family Medical History / Comment(s): Pancreatic cancer. Brother(s) Family Medical History: Diabetes Mellitus Mother Family Medical History: Hypertension Medications and Allergies Home Medications Medication Instructions Recorded Confirmed Type Omeprazole [PriLOSEC] 10 mg PO DAILY 09/29/14 01/12/23 History hydrOXYzine pamoate [Vistaril] 25 mg PO HS 09/29/14 01/12/23 History Bioidentical Hormone Cream(Otc) 2 applic TOPICAL HS 06/17/19 01/12/23 History Budesonide [Pulmicort] 0.5 mg INHALATION RT-BID PRN 06/17/19 01/12/23 History Cromolyn Sodium 20 mg INHALATION RT-QID PRN 06/17/19 01/12/23 History Levothyroxine Sodium [Synthroid] 0.025 mcg PO DAILY 06/17/19 01/12/23 History Thyroid,Pork [Male Model Thyroid] 40 mg PO DAILY 06/17/19 01/12/23 History Cholecalciferol (Vitamin D3) 250 mcg PO DAILY 12/09/21 01/12/23 History [Vitamin D3 (125 MCG = 5,000 IU)] Chromium Picolinate 200 mcg PO DAILY 12/09/21 01/12/23 History Famotidine [Pepcid] 40 mg PO BID 12/09/21 01/12/23 History Garlic 50 mg PO BID 12/09/21 01/12/23 History Lutein 20 mg PO DAILY 12/09/21 01/12/23 History Magnesium 240 mg PO BID 12/09/21 01/12/23 History Ubidecarenone [Co Q-10] 200 mg PO DAILY 12/09/21 01/12/23 History Vitamin A [Vitamin A (8,000 Units 3,000 mcg PO DAILY 12/09/21 01/12/23 History = 2,400 MCG)] metFORMIN HCL ER [Glucophage XR] 500 mg PO DAILY 12/09/21 01/12/23 History Allergies Allergy/AdvReac Type Severity Reaction Status Date / Time ciprofloxacin [From Cipro] Allergy Unknown Verified 01/12/23 11:35 ciprofloxacin HCl Allergy Unknown Verified 01/12/23 11:35 [From Cipro] rabeprazole sodium Allergy Unknown Verified 01/12/23 11:35 [From Aciphex] Sulfa (Sulfonamide Allergy Unknown Verified 01/12/23 11:35 Antibiotics) Exam Vital Signs Temp Pulse Resp BP Pulse Ox 01/12/23 11:38 97.7 F 80 18 101/67 97 Intake and Output 01/11/23 01/12/23 01/12/23 22:59 06:59 14:59 Other: Weight 70.307 kg Height 5 feet 6 inches, weight 155 pounds, BMI 25.0. This is a well-developed well-nourished white female who is alert and oriented times 3 in no acute distress. HEENT: Within normal limits. NECK: Supple without mass or thyromegaly. CHEST AND LUNGS: Clear to auscultation. HEART: Regular rate and rhythm. BREASTS: Are without mass or discharge. Breasts are consistent with bilateral breast reduction surgeries. AXILLARY EXAM: Negative for adenopathy. BACK: Negative for CVA tenderness. ABDOMEN: Soft, nontender, without palpable masses. PELVIC EXAM: External genitalia appears normal with mild atrophy. Vagina appears normal is mild atrophy. There is no evidence of prolapse. Bimanual examination is negative for mass or tenderness. RECTAL EXAM: Rectovaginal exam is negative for mass or tenderness and is negative for occult blood. EXTREMITIES: Nontender. IMPRESSION: 1. 67-year-old menopausal female status post BECKY/BSO with later enterocele and rectocele repairs for benign reasons, with normal gynecologic exam. 2. Doing well with physical therapy for bowel movement issues. No significant physical findings on exam today. PLAN: 1. Pap smears have been discontinued. 2. Self breast awareness was discussed with the patient. We have also discussed symptoms associated with inflammatory breast cancer. 3. Screening mammogram was done on 10/16/2022 at [facility] per the patient. According to the patient this was normal. She will try to get me a copy of the mammogram. She will repeat this after 1 year. 4. Osteoporosis prevention was discussed. I have stressed the importance of adequate calcium, vitamin D and regular exercise. Recommended amounts of calcium and vitamin D were also discussed. 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 She will try to get me a copy of her most recent bone density test. 5. She was advised to return in one year for her annual well woman exam.
== END ==
LOC: WWCWWP 11:23
PROVIDERS: ATTEND Obstetrics & Gynecology
DX: Z01.419 Encounter for gynecological examination (general) (routine) without abnormal findings (principal); Z78.0 Asymptomatic menopausal state; B33.8 Other specified viral diseases; Z98.890 Other specified postprocedural states; Z88.1 Allergy status to other antibiotic agents; Z88.2 Allergy status to sulfonamides; Z88.8 Allergy status to other drugs, medicaments and biological substances; J45.909 Unspecified asthma, uncomplicated; K21.9 Gastro-esophageal reflux disease without esophagitis; E03.9 Hypothyroidism, unspecified; K22.70 Barrett's esophagus without dysplasia; Z79.890 Hormone replacement therapy; Z87.891 Personal history of nicotine dependence

== ENCOUNTER → 2023-07-07 | Outpatient (CLI) | payer MEDICARE ==
--- NOTE | 2023-07-08 12:57 | MR ---
EXAMINATION TYPE: MR hip LT wo con DATE OF EXAM: 07/07/2023 COMPARISON: CT abdomen and pelvis January 02, 2020 HISTORY: Left hip pain x 6 weeks, strain. Standard multiplanar, multisequence MRI departmental protocol Multiplanar, multisequence images of the pelvis focusing on left hip were acquired without contrast. FINDINGS: [id number] axial joint space loss with mild spurring of both hips is redemonstrated. Small symmetric hip joint effusions are present and presumed physiologic. Small bowel heterogeneity o f bone marrow. No suspicious focal increased T2 signal or edema. No serpiginous diminished T1 signal to suggest avascular necrosis bilaterally. Femoral head shapes are maintained bilaterally. Muscle bul k is symmetric and within normal limits bilaterally. No groin hernia or adenopathy is seen. No suspicious small or large bowel dilatation. Urinary bladder appears within normal limits. No free fluid in the pelvis. IMPRESSION: [id number] degenerative changes in both hips as detailed above. No suspicious muscular edema or tearing noted.
== END | disposition home or self-care (01) ==
LOC: RADMRIMAIN 08:42
PROVIDERS: ATTEND Family Medicine
DX: M16.0 Bilateral primary osteoarthritis of hip (principal); M25.451 Effusion, right hip; M25.452 Effusion, left hip

== ENCOUNTER → 2024-02-01 | Outpatient (CLI) | payer MEDICARE ==
[2024-02-01 16:21] VITALS: BP 126/71; PULSE 66; RESP 16; TEMP 97.9
--- NOTE | 2024-02-01 16:54 | P.HPOB ---
History of Present Illness H&P Date: 02/01/24 Chief Complaint: The patient is here for her routine gynecologic exam. This is a 68-year-old with an LMP of 1988. She is status post BECKY/BSO for benign reasons. She later underwent a rectocele and enterocele repair in 2019. She previously was having bowel movement issues after the rectocele repair, but underwent physical therapy which helped and she also uses MiraLAX as needed. She no longer undergoes physical therapy, but uses some of the techniques utilized by physical therapist still. She has been on HRT cream for 10 years and this is prescribed by Dr. Monica Hayward, her "secondary" primary physician. She uses this for menopausal symptoms including sexual menopausal symptoms for which this has helped significantly. Review of Systems Weight has been stable. She denies respiratory or cardiac problems. GI: Her bowel movement issues are significantly improved as in the HPI. Past Medical History Past Medical History: Asthma, GERD/Reflux, Thyroid Disorder Additional Past Medical History / Comment(s): instititial cystitis, hypothyroidism, Heard's esophagus. 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 History of Any Multi-Drug Resistant Organisms: None Reported Past Surgical History: Breast Surgery, Section, Hysterectomy, Tubal Ligation Additional Past Surgical History / Comment(s): BREAST REDUCTION/ TUMMY TUCK, face lift, breast biopsy, section 1, abdominoplasty, facelift surgery, BECKY/BSO in 1988. Rectocele and enterocele repair 2018. Colonoscopy 2022(Next after 5yr) Past Psychological History: Panic Disorder Additional Psychological History / Comment(s): She denies depression symptoms. Smoking Status: Former smoker Past Alcohol Use History: None Reported Additional Past Alcohol Use History / Comment(s): Quit smoking in 1989. Past Drug Use History: None Reported Additional History: She has been a since 2019. She is currently not sexually active. 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 - Past Family History Father Family Medical History: Cancer Additional Family Medical History / Comment(s): Pancreatic cancer. Brother(s) Family Medical History: Diabetes Mellitus Mother Family Medical History: Hypertension Medications and Allergies Home Medications Medication Instructions Recorded Confirmed Type Omeprazole [PriLOSEC] 10 mg PO DAILY 09/29/14 01/12/23 History hydrOXYzine pamoate [Vistaril] 25 mg PO HS 09/29/14 01/12/23 History Bioidentical Hormone Cream(Otc) 2 applic TOPICAL HS 06/17/19 01/12/23 History Budesonide [Pulmicort] 0.5 mg INHALATION RT-BID PRN 06/17/19 01/12/23 History Cromolyn Sodium 20 mg INHALATION RT-QID PRN 06/17/19 01/12/23 History Levothyroxine Sodium [Synthroid] 0.025 mcg PO DAILY 06/17/19 01/12/23 History Thyroid,Pork [Spouting Installer Thyroid] 40 mg PO DAILY 06/17/19 01/12/23 History Cholecalciferol (Vitamin D3) 250 mcg PO DAILY 12/09/21 01/12/23 History [Vitamin D3 (125 MCG = 5,000 IU)] Chromium Picolinate 200 mcg PO DAILY 12/09/21 01/12/23 History Famotidine [Pepcid] 40 mg PO BID 12/09/21 01/12/23 History Garlic 50 mg PO BID 12/09/21 01/12/23 History Lutein 20 mg PO DAILY 12/09/21 01/12/23 History Magnesium 240 mg PO BID 12/09/21 01/12/23 History Ubidecarenone [Co Q-10] 200 mg PO DAILY 12/09/21 01/12/23 History Vitamin A [Vitamin A (8,000 Units 3,000 mcg PO DAILY 12/09/21 01/12/23 History = 2,400 MCG)] metFORMIN HCL ER [Glucophage XR] 500 mg PO DAILY 12/09/21 01/12/23 History Allergies Allergy/AdvReac Type Severity Reaction Status Date / Time ciprofloxacin [From Cipro] Allergy Unknown Verified 02/01/24 16:18 ciprofloxacin HCl Allergy Unknown Verified 02/01/24 16:18 [From Cipro] rabeprazole sodium Allergy Unknown Verified 02/01/24 16:18 [From Aciphex] Sulfa (Sulfonamide Allergy Unknown Verified 02/01/24 16:18 Antibiotics) Exam Vital Signs Temp Pulse Resp BP Pulse Ox 02/01/24 16:18 97.9 F 66 16 126/71 98 Intake and Output 02/01/24 02/01/24 02/01/24 06:59 14:59 22:59 Other: Weight 71.214 kg Height 5 feet 6 inches, weight 157 pounds, BMI 25.3. This is a well-developed well-nourished white female who is alert and oriented times 3 in no acute distress. HEENT: Within normal limits. NECK: Supple without mass or thyromegaly. CHEST AND LUNGS: Clear to auscultation. HEART: Regular rate and rhythm. BREASTS: Are without mass or discharge. Breasts are consistent with bilateral breast reduction surgery. AXILLARY EXAM: Negative for adenopathy. BACK: Negative for CVA tenderness. ABDOMEN: Soft, nontender, without palpable masses. PELVIC EXAM: External genitalia appears normal with mild atrophy. Vagina appears normal with mild atrophy. There is no evidence of prolapse. Bimanual examination is negative for mass or tenderness. RECTAL EXAM: Rectovaginal exam is negative for mass or tenderness and is ne gative for occult blood. EXTREMITIES: Nontender. IMPRESSION: 1. 68-year-old menopausal female status post BECKY/BSO for benign reasons with normal gynecologic exam. 2. Improved bowel movement issues which started after her rectocele repair. 3. The patient is on HRT creams which the patient states includes estrogen, progesterone, and testosterone. This is prescribed and monitored by Dr. Monica Hayward, according to the patient. PLAN: 1. Pap smears have been discontinued. 2. Self breast awareness was discussed with the patient. We have also discussed symptoms associated with inflammatory breast cancer. 3. Screening mammogram was done in October 2023 at [facility] per the patient. She states she was notified that it was normal. She will continue to do her mammograms there and she will get her order slip from her PCP, as she has done in the past. I have given her the option of doing her mammograms here and she will consider this. 4. Osteoporosis prevention was discussed. She believes she had a bone density test about 4 to 5 years ago and she states it was normal. She states it was done at [facility]. I recommended that she repeat the bone density test again next year and she can do it at [facility] on the same day as her next well woman examination. 5. We have discussed HRT. We have discussed how the combination of estrogen and progesterone may increase the risk for heart attack and breast cancer. HRT alone can also increase risk for blood clots. She was advised to use this cautiously and will further discuss this with her doctor who prescribes this. She will also discuss the possible discontinuation of the progesterone with her doctor since she has had a hysterectomy. 6. She was advised to return in one year for her annual well woman exam.
== END ==
LOC: WWCWWP 15:37
PROVIDERS: ATTEND Obstetrics & Gynecology
DX: Z01.419 Encounter for gynecological examination (general) (routine) without abnormal findings (principal); Z78.0 Asymptomatic menopausal state; Z90.710 Acquired absence of both cervix and uterus; Z90.722 Acquired absence of ovaries, bilateral; Z88.1 Allergy status to other antibiotic agents; Z88.2 Allergy status to sulfonamides; Z88.8 Allergy status to other drugs, medicaments and biological substances; Z87.891 Personal history of nicotine dependence

== ENCOUNTER → 2024-07-18 | Outpatient (CLI) | payer MEDICARE ==
[2024-07-18 14:13] VITALS: BP 129/67; PULSE 70; RESP 16; TEMP 98.2
--- NOTE | 2024-07-18 14:46 | P.PN ---
Progress Note - Text Progress Note Date: 07/18/24 Chief Complaint: Lower abdominal and pelvic pain after lifting something heavy about 3 weeks ago. HPI: This is a 68-year-old G2, P2 with an LMP of in 1988. She is status post BECKY/BSO for benign reasons. She later underwent a rectocele and enterocele repair in 2019. About 3 weeks ago she lifted heavy lites which weighed about 60 pounds. The light shifted and she noticed lower abdominal and pelvic pain. She wondered if she had a recurrence of her enterocele. The pain lasted for about 1-1/2 weeks and then resolved. She thinks she has also noticed a slight increase in her stress urinary incontinence with coughing or sneezing. She denies urge incontinence. ROS: She denies respiratory, cardiac, or GI problems. PE: Blood pressure: 129/67, Height: 5 feet 6 inches, Weight: 155 pounds, Temperature: 98.2, Pulse: 70. Pulse oximeter 97% This is a well developed, well nourished, white female who is alert and orientedx3, in no acute distress. Abdomen: Soft, nontender, without palpable masses. Normal external genitalia. Vagina appears normal with mild atrophy. At rest there is no significant prolapse. Bimanual examination: The bladder seems well supported. There is mild urethral mobility with cough and Valsalva. No urinary leakage was demonstrated. There is a grade 1 rectocele and no significant enterocele. The vaginal cuff is well supported. Bimanual examination is negative for mass or tenderness. Rectovaginal exam confirms a very small rectocele. There are no rectal masses and there is a moderate amount of firm stool in the rectum. Impression: 1. 68-year-old menopausal female status post BECKY/BSO for benign reasons with brief low abdominal and pelvic pains after heavy lifting with no evidence of recurrence of her enterocele or worsening of her rectocele. The pain has resolved. Differential diagnosis will include musculoskeletal pain as well as possible other type of hernia. 2. Mild stress urinary incontinence with mild urethral mobility with cough and Valsalva. Plan: 1. At this time, since the pain has resolved and there are no significant phys ical findings on exam today, we will proceed with conservative management. 2. If worsening stress urinary incontinence, we can consider referral to a gynecologic urologist. In the meantime I have recommended regular Kegel exercises, timed voids and emptying the bladder as completely as possible, not by bearing down, but with giving herself more time and by relaxing. She was instructed to call if she is having worsening symptoms or problems. Time spent with the patient: 25 minutes
== END ==
LOC: WWCWWP 13:49
PROVIDERS: ATTEND Obstetrics & Gynecology
DX: Z01.419 Encounter for gynecological examination (general) (routine) without abnormal findings (principal); R10.2 Pelvic and perineal pain; R10.30 Lower abdominal pain, unspecified; N39.3 Stress incontinence (female) (male); R05.9 Cough, unspecified; Z90.722 Acquired absence of ovaries, bilateral; Z90.710 Acquired absence of both cervix and uterus; Z88.1 Allergy status to other antibiotic agents; Z88.8 Allergy status to other drugs, medicaments and biological substances; Z88.2 Allergy status to sulfonamides; Z87.891 Personal history of nicotine dependence